=== PATIENT | male | born 1990 | race Caucasian/White ===

== ENCOUNTER 2019-11-30 03:02 | Emergency (ER) | payer SELFPAY ==
--- NOTE | 2019-11-30 03:35 | EDM.PDOC ---
ED HPI GENERAL MEDICAL PROBLEM - General Chief Complaint: General Stated Complaint: MEDICAL CLEARANCE Time Seen by Provider: 11/30/19 03:30 Source of Information: Reports: Patient History Limitations: Reports: No Limitations - History of Present Illness INITIAL COMMENTS - FREE TEXT/NARRATIVE: Treated here because [facility] patient has a temperature 98.0 Onset: Today Duration: Minutes:, Resolved Prior to Arrival Improves with: Reports: None - Related Data Allergies Allergy/AdvReac Type Severity Reaction Status Date / Time No Known Allergies Allergy Verified 11/30/19 03:14 Home Meds: Home Meds Non-Formulary Medication [NF Drug] 11/30/19 [History] Past Medical History Other Musculoskeletal History: carpel tunnel Social & Family History - Tobacco Use Smoking Status *Q: Current Every Day Smoker Years of Tobacco use: 20 Packs/Tins Daily: 1 - Caffeine Use Caffeine Use: Reports: None - Recreational Drug Use Recreational Drug Use: Yes Recreational Drug Type: Reports: Marijuana/Hashish, Methamphetamine ED ROS GENERAL - Review of Systems Review Of Systems: See Below Constitutional: Reports: No Symptoms HEENT: Reports: No Symptoms Respiratory: Reports: No Symptoms Cardiovascular: Reports: No Symptoms Endocrine: Reports: No Symptoms GI/Abdominal: Reports: No Symptoms : Reports: No Symptoms Musculoskeletal: Reports: No Symptoms Skin: Reports: No Symptoms Neurological: Reports: No Symptoms Psychiatric: Reports: No Symptoms Hematologic/Lymphatic: Reports: No Symptoms Immunologic: Reports: No Symptoms ED EXAM, GENERAL - Physical Exam Exam: See Below Exam Limited By: No Limitations General Appearance: Alert, WD/WN, No Apparent Distress Ears: Normal External Exam, Normal Canal, Hearing Grossly Normal, Normal TMs Nose: Normal Inspection, Normal Mucosa, No Blood Throat/Mouth: Normal Inspection, Normal Lips, Normal Teeth, Normal Oropharynx, Normal Voice Head: Atraumatic, Normocephalic Neck: Normal Inspection, Supple Respiratory/Chest: No Respiratory Distress, Lungs Clear, Normal Breath Sounds Cardiovascular: Normal Peripheral Pulses, Regular Rate, Rhythm (Male) Exam: Deferred Rectal (Males) Exam: Deferred Back Exam: Normal Inspection, Full Range of Motion Extremities: Normal Inspection, Normal Range of Motion, No Pedal Edema Neurological: Alert, Oriented, CN II-XII Intact, Normal Reflexes, No Motor/ Sensory Deficits Psychiatric: Normal Affect, Normal Mood Skin Exam: Warm, Dry, Intact, Normal Color Lymphatic: No Adenopathy Course - Vital Signs Last Recorded V/S: Last Vital Signs Temp 98.0 F 11/30/19 03:12 Pulse 115 H 11/30/19 03:12 Resp 18 11/30/19 03:12 BP 169/90 H 11/30/19 03:12 Pulse Ox 99 11/30/19 03:12 Departure - Departure Time of Disposition: 03:33 Disposition: Home, Self-Care 01 Condition: Good Clinical Impression: Medical clearance for incarceration - Discharge Information Instructions: Medical Screening Exam Referrals: Fartun Bianchi [Ordering Only Provider] - PCP,None [Primary Care Provider] - Sepsis Event Note - Evaluation Sepsis Screening Result: No Definite Risk - Focused Exam Vital Signs: Vital Signs Temp Pulse Resp BP Pulse Ox 11/30/19 03:12 98.0 F 115 H 18 169/90 H 99 Date Exam was Performed: 11/30/19 Time Exam was Performed: 03:31
== END 2019-11-30 03:45 | disposition home or self-care (01) ==
LOC: MW.ED 03:02
CPT/HCPCS: 99282; 99283

== ENCOUNTER 2020-01-10 16:04 | Emergency (ER) | payer BC ==
--- NOTE | 2020-01-10 16:38 | EDM.PDOC ---
ED HPI GENERAL MEDICAL PROBLEM - General Chief Complaint: Skin Complaint Stated Complaint: LEFT ARM SWELLING Time Seen by Provider: 01/10/20 16:06 Source of Information: Reports: Patient History Limitations: Reports: No Limitations - History of Present Illness INITIAL COMMENTS - FREE TEXT/NARRATIVE: HISTORY AND PHYSICAL: History of present illness: Patient is a 29-year-old male who presents to the emergency room with concerns of redness and swelling at a IV methamphetamine injection site. He states he injected meth on and had felt he had some redness and swelling which has progressively gotten worse(reported last time of use). Over the past few days skin turned from a localized site of redness to spreading to the bicep and mid forearm. He has only been using IV drugs for the past 6 months. Patient denies any fever, chills, headache, neck stiffness, change in vision, syncope or near syncope. Denies any chest pain, neck/back pain, shortness of breath or cough. Denies any abdominal pain, nausea, vomiting, diarrhea, constipation or dysuria. Has not noted any blood in urine or stool. Patient has been eating and drinking appropriately. Right hand dominant. Denies any other immunocompetencies Review of systems: As per history of present illness and below otherwise all systems reviewed and negative. Past medical history: As per history of present illness and as reviewed below otherwise noncontributory. Surgical history: As per history of present illness and as reviewed below otherwise noncontributory. Social history: See social history for further information Family history: As per history of present illness and as reviewed below otherwise noncontributory. Physical exam: General: Well-developed and well-nourished 29-year-old male. Alert and oriented. Nontoxic-appearing and in no acute distress. HEENT: Atraumatic, normocephalic, pupils equal and reactive bilaterally, negative for conjunctival pallor or scleral icterus, mucous membranes moist, TMs normal bilaterally, throat clear, neck supple, nontender, trachea midline. No drooling or trismus noted. No meningeal signs. No hot potato voice noted. Lungs: Clear to auscultation, breath sounds equal bilaterally, chest nontender. Breathes easily and even. No work of breathing. Heart: S1S2, regular rhythm with tachycardia. NO rub or murmur Abdomen: Soft, nondistended, nontender. Negative for masses or hepatosplenomegaly. Negative for costovertebral tenderness. Skin: A $0.50 piece area noted to the left lateral antecubital space that is firm to touch with fluctuance. Nonindurated. There is erythema at the site that extends into the bicep and mid forearm. Intact, warm, dry. No lesions or rashes noted. Extremities: See skin for details, moves all extremities per self without difficulty or deficits, negative for cords or calf pain. Neurovascular unremarkable. Neuro: Awake, alert, oriented. Cranial nerves II through XII unremarkable. Cerebellum unremarkable. Motor and sensory unremarkable throughout. Exam nonfocal. Notes: X-ray of the left elbow shows radiopacities seen within the posterior forearm, this is not the site that is in question. He does have soft tissue air noted at the area where the abscess is located. I did talk with the patient about admission which he adamantly declined. He states he needs to go to work tomorrow. We discussed the risks of being discharged to home, including vascular injury, sepsis, or . Dr. Allen was consulted on this. Alejandro performed a bedside ultrasound. We discussed OR vs bedside I&D. He is agreeable to bedside I&D. The I&D was discussed and explained to the patient in detail. He has agreed for the I&D to be done in the ER, consent signed. 1% lidocaine with epinephrine was used to anesthetize the area. Usual and customary procedures were followed for I&D. Inoculations were broken up. Area was thoroughly irrigated with wound wash. Half-inch iodoform was inserted into the wound. Nonstick bulky dressing. Patient is receiving IV vancomycin. Patient will be transitioned into clindamycin. Patient states although he does need to go to work tomorrow he will return tomorrow evening for dressing change. We discussed signs and symptoms that would prompt him to return to the emergency room if they should happen before he is seen. Diagnostics: CBC, CMP, Lactate w/ reflex, BC x 2, elbow x-ray Therapeutics: Vancomycin, IV fluids lidocaine Prescription: Clindamycin QID x 10 days Impression: AGAINST MEDICAL ADVICE Abscess with cellulitis related to IV drug use, left upper extremity Plan: 1. STOP ALL INTRAVENOUS DRUG USE. Keep the area clean and dry. Continue to monitor for signs of improvement. The abscess was drained and packing was inserted into the wound. You will need packing changes daily over the next week. The packing is needed so the wound can heal from the inside out. Return to the ED to have this changed. IF would wound should become worse, or the redness spreads even more - RETURN to the ED as you will likely need admission for IV antibiotics (you refused admission today). 2. Please take the antibiotic as directed. 3. You can alternate Ibuprofen and Tylenol as needed. 4. I would like someone to follow this abscess/cellulitis outside of the emergency room. Dr Allen (general surgeon) has agreed to see you in her office or you can follow-up with a primary care provider. Please call Saturday to set up an appointment. Definitive disposition and diagnosis as appropriate pending reevaluation and review of above. Duration: Day(s): Location: Reports: Upper Extremity, Left L arm Pain Score (Numeric/FACES): 3 - Related Data Allergies Allergy/AdvReac Type Severity Reaction Status Date / Time No Known Allergies Allergy Verified 01/10/20 16:29 Home Meds: Home Meds . [No Known Home Meds] 01/10/20 [History] Past Medical History Other Musculoskeletal History: carpel tunnel Social & Family History - Caffeine Use Caffeine Use: Reports: None ED ROS GENERAL - Review of Systems Review Of Systems: Comprehensive ROS is negative, except as noted in HPI. ED EXAM, SKIN/RASH Exam: See Below (See dictation) ED SKIN PROCEDURES - I&D Site: left forearm Skin Prep: Providone-Iodine (Betadine), Sterile Drape Local Anesthesia: Lidocaine: 1% with EPI Local Anesthetic Volume: 5cc Area Incised With: 11 Blade Drainage: Purulent, Large Amount Probed to Break Up Loculations: Yes Packed With: 1/2 in. Iodoform Sterile Dressinx4(s), None (Kerlix) Complications: No Course - Vital Signs Last Recorded V/S: Last Vital Signs Temp 97.4 F 01/10/20 16:07 Pulse 109 H 01/10/20 16:07 Resp 18 01/10/20 16:07 BP 116/77 01/10/20 16:07 Pulse Ox 98 01/10/20 16:07 - Orders/Labs/Meds Orders: Active Orders 24 hr Category Date Time Status Vaccines to be Administered [RC] PER UNIT ROUTINE Care 01/10/20 17:14 Active CULTURE BLOOD [BC] Stat Lab 01/10/20 17:01 Received CULTURE BLOOD [BC] Stat Lab 01/10/20 17:11 Received Lactated Ringers [Ringers, Lactated] 1,000 ml Med 01/10/20 16:45 Active IV ASDIRECTED Blood Culture x2 Reflex Set [OM.PC] Stat Oth 01/10/20 16:21 Ordered Medication Orders Lactated Ringer's (Ringers, Lactated) 1,000 mls @ 999 mls/hr IV ASDIRECTED NIKKI Last Admin: 01/10/20 17:33 Dose: 999 mls/hr Labs: Laboratory Tests 01/10/20 01/10/20 01/10/20 Range/Units 16:43 16:43 16:43 WBC 13.95 H (4.0-11.0) K/uL RBC 5.09 (4.50-5.90) M/uL Hgb 15.5 (13.0-17.0) g/dL Hct 46.5 (38.0-50.0) % MCV 91.4 (80.0-98.0) fL MCH 30.5 (27.0-32.0) pg MCHC 33.3 (31.0-37.0) g/dL RDW Std Deviation 45.2 (28.0-62.0) fl RDW Coeff of [place] 13 (11.0-15.0) % Plt Count 301 (150-400) K/uL MPV 10.70 (7.40-12.00) fL Neut % (Auto) 73.8 (48.0-80.0) % Lymph % (Auto) 14.0 L (16.0-40.0) % [place] % (Auto) 10.4 (0.0-15.0) % Eos % (Auto) 1.6 (0.0-7.0) % Baso % (Auto) 0.2 (0.0-1.5) % Neut # (Auto) 10.3 H (1.4-5.7) K/uL Lymph # (Auto) 2.0 (0.6-2.4) K/uL [place] # (Auto) 1.5 H (0.0-0.8) K/uL Eos # (Auto) 0.2 (0.0-0.7) K/uL Baso # (Auto) 0.0 (0.0-0.1) K/uL Nucleated RBC % 0.0 /100WBC Nucleated RBCs # 0 K/uL Lactate 1.1 (0.20-2.00) mmol/L Sodium 138 (136-148) mmol/L Potassium 4.0 (3.5-5.1) mmol/L Chloride 103 (98-107) mmol/L Carbon Dioxide 25.9 (21.0-32.0) mmol/L BUN 14 (7.0-18.0) mg/dL Creatinine 1.0 (0.8-1.3) mg/dL Est Cr Clr Drug Dosing 107.03 mL/min Estimated GFR (MDRD) > 60.0 ml/min Glucose 105 (74-106) mg/dL Calcium 8.2 L (8.5-10.1) mg/dL Total Bilirubin 0.5 (0.2-1.0) mg/dL AST 19 (15-37) IU/L ALT 25 (14-63) IU/L Alkaline Phosphatase 61 (46-116) U/L Total Protein 7.2 (6.4-8.2) g/dL Albumin 3.4 (3.4-5.0) g/dL Globulin 3.8 (2.6-4.0) g/dL Albumin/Globulin Ratio 0.9 (0.9-1.6) Meds: Medications Generic Name Dose Route Start Last Admin Trade Name Freq PRN Reason Stop Dose Admin Lactated Ringer's 1,000 mls @ 999 mls/hr 01/10/20 16:45 01/10/20 17:33 Ringers, Lactated IV 999 mls/hr ASDIRECTED NIKKI Administration Discontinued Medications Generic Name Dose Route Start Last Admin Trade Name Freq PRN Reason Stop Dose Admin Diphtheria/Tetanus/Acell Pertussis 0.5 ml 01/10/20 17:14 01/10/20 18:40 Adacel IM 01/10/20 17:15 0.5 ml .ONCE ONE Administration Vancomycin HCl 1 gm/ Sodium 250 mls @ 166 mls/hr 01/10/20 16:24 01/10/20 17: 32 Chloride IV 01/10/20 17:54 166 mls/hr ONETIME ONE Administration Lidocaine/Epinephrine 10 ml 01/10/20 17:14 01/10/20 18:43 Xylocaine 1% With Epinephrine 1:100,000 INJECT 01/10/20 17:15 Not Given ONETIME ONE Lidocaine/Epinephrine Confirm 01/10/20 17:29 01/10/20 18:43 Xylocaine 1% With Epinephrine 1:100,000 Administered 01/10/20 17:30 20 ml Dose Administration 20 ml .ROUTE .STK-MED ONE Departure - Departure Time of Disposition: 19:53 Disposition: Against Medical Advice 07 Clinical Impression: Cellulitis and abscess of upper extremity, Left against medical advice, IV drug user - Discharge Information Instructions: Cellulitis, Adult, [id number] Referrals: PCP,None [Primary Care Provider] - Forms: ED Department Discharge Additional Instructions: The following information is given to patients seen in the emergency department who are being discharged to home. This information is to outline your options for follow-up care. We provide all patients seen in our emergency department with a follow-up referral. The need for follow-up, as well as the timing and circumstances, are variable depending upon the specifics of your emergency department visit. If you don't have a primary care physician on staff, we will provide you with a referral. We always advise you to contact your personal physician following an emergency department visit to inform them of the circumstance of the visit and for follow-up with them and/or the need for any referrals to a consulting specialist. The emergency department will also refer you to a specialist when appropriate. This referral assures that you have the opportunity for follow-up care with a specialist. All of these measure are taken in an effort to provide you with optimal care, which includes your follow-up. Under all circumstances we always encourage you to contact your private physician who remains a resource for coordinating your care. When calling for follow-up care, please make the office aware that this follow-up is from your recent emergency room visit. If for any reason you are refused follow-up, please contact the [facility] at and asked to speak to the emergency department charge nurse. [facility] [address] [place] [id number] [facility] [address] [place] [address] 1. STOP ALL INTRAVENOUS DRUG USE. Keep the area clean and dry. Continue to monitor for signs of improvement. The abscess was drained and packing was inserted into the wound. You will need packing changes daily over the next week. The packing is needed so the wound can heal from the inside out. Return to the ED to have this changed. IF would wound should become worse, or the redness spreads even more - RETURN to the ED as you will likely need admission for IV antibiotics (you refused admission today). 2. Please take the antibiotic as directed. 3. You can alternate Ibuprofen and Tylenol as needed. 4. I would like someone to follow this abscess/cellulitis outside of the emergency room. Dr Allen (general surgeron) has agreed to see you in her office or you can follow-up with a primary care provider. Please call Saturday to set up an appointment. Sepsis Event Note - Evaluation Sepsis Screening Result: No Definite Risk - Focused Exam Vital Signs: Vital Signs Temp Pulse Resp BP Pulse Ox 01/10/20 16:07 97.4 F 109 H 18 116/77 98 Date Exam was Performed: 01/10/20 Time Exam was Performed: 19:53 - My Orders Last 24 Hours: My Active Orders 01/10/20 16:21 Blood Culture x2 Reflex Set [OM.PC] Stat 01/10/20 16:45 Lactated Ringers [Ringers, Lactated] 1,000 ml IV ASDIRECTED 01/10/20 17:01 CULTURE BLOOD [BC] Stat 01/10/20 17:11 CULTURE BLOOD [BC] Stat 01/10/20 17:14 Vaccines to be Administered [RC] PER UNIT ROUTINE - Assessment/Plan Last 24 Hours: My Active Orders 01/10/20 16:21 Blood Culture x2 Reflex Set [OM.PC] Stat 01/10/20 16:45 Lactated Ringers [Ringers, Lactated] 1,000 ml IV ASDIRECTED 01/10/20 17:01 CULTURE BLOOD [BC] Stat 01/10/20 17:11 CULTURE BLOOD [BC] Stat 01/10/20 17:14 Vaccines to be Administered [RC] PER UNIT ROUTINE
--- NOTE | 2020-01-10 16:44 | CR ---
Left elbow: 2 views left elbow were obtained. Soft tissue air is identified. Multiple radiopacities are projected within or close to the triceps tendon for a length of 4.8 cm. Focal radiopacity is seen within the posterior forearm measuring 2.3 mm No acute bony abnormality is appreciated. Impression: 1. Radiopacities as described above. 2. Soft tissue air. 3. No acute bony abnormality is appreciated. Diagnostic code #3 This report was dictated in MDT
[2020-01-10] MEDS ORDERED: Lactated Ringers 1,000 ML IV SCH (16:45)
[2020-01-10 17:14] LABS: BLOOD UREA NITROGEN,BUN 14 mg/dL (7.0-18.0); CARBON DIOXIDE,CO2 25.9 mmol/L (21.0-32.0); CHLORIDE,CL 103 mmol/L (98-107); GLUCOSE RANDOM 105 mg/dL (74-106); SODIUM,NA 138 mmol/L (136-148)
[2020-01-10] MEDS ORDERED: Diphtheria,Pertussis(Acell),Tetanus Vaccine 0.5 ML Syringe IM ONE (17:14)
[2020-01-10] MEDS ORDERED: Lidocaine 1% with EPINEPHrine 1:100,000 10 ML MDV INJECT ONE (17:14)
[2020-01-10] MEDS ORDERED: Lidocaine 1% with EPINEPHrine 1:100,000 20 ML MDV ONE (17:29)
== END 2020-01-10 19:21 | disposition left against medical advice (07) ==
LOC: MW.ED 16:04
DX: L03.114 Cellulitis of left upper limb (principal); L02.414 Cutaneous abscess of left upper limb; F15.10 Other stimulant abuse, uncomplicated; Z23 Encounter for immunization
CPT/HCPCS: 10060; 73070; 80053; 83605; 85025; 87040; 90471; 90715; 96365; 99283; J3370; J7050; J7120

== ENCOUNTER 2023-07-05 12:16 | Emergency (ER) | payer SELFPAY ==
[2023-07-05] MEDS ORDERED: Lidocaine 1% 5 ML VIAL INJECT STA (12:51)
== END 2023-07-05 13:52 ==
LOC: MW.ED 12:16
DX: S01.511A Laceration without foreign body of lip, initial encounter (principal); Z87.891 Personal history of nicotine dependence; Z79.899 Other long term (current) drug therapy; Y04.8XXA Assault by other bodily force, initial encounter
CPT/HCPCS: 12011; 99283; J3490